=== PATIENT | male | born 1945 | race Caucasian/White ===

== ENCOUNTER 2019-12-02 11:25 | Outpatient (REF) | payer MEDICARE, SELFPAY ==
--- NOTE | 2019-12-02 | XR_ITS ---
EXAMINATION: XR HAND, LEFT CLINICAL INFORMATION: Pain left hand COMPARISON: None TECHNIQUE: PA, lateral, and oblique views of the left hand. FINDINGS: There is no fracture or dislocation. There are prominent osteoarthritic changes involving the first carpometacarpal joint with joint space narrowing and subchondral sclerosis and spurring. There is mild ossification in the adjacent lateral soft tissue. The ulnar variance is neutral. The MCP joints are normal. There is mild narrowing DIP joints without erosive changes. IMPRESSION: 1. Osteoarthritis first carpometacarpal joint. 2. Mild narrowing DIP joints. No erosive changes.
== END 2019-12-02 11:26 | disposition home or self-care (01) ==
LOC: HO.XRAY 11:25
PROVIDERS: PCP Internal Medicine; Visit Provider Internal Medicine
DX: M79.642 Pain in left hand (principal)
CPT/HCPCS: 73130

== ENCOUNTER 2020-04-25 10:26 | Outpatient (REF) | payer MEDICARE, SELFPAY ==
[2020-04-25 12:24] LABS: PSA,Total (Free>4and<10) 3.39 ng/mL (0.00-4.00)
== END 2020-04-25 10:27 | disposition home or self-care (01) ==
LOC: HO.HMGCLDS 10:26
PROVIDERS: PCP Internal Medicine; Visit Provider Urology
DX: N40.1 Benign prostatic hyperplasia with lower urinary tract symptoms (principal); N13.8 Other obstructive and reflux uropathy; Z12.5 Encounter for screening for malignant neoplasm of prostate
CPT/HCPCS: 36415; 84153

== ENCOUNTER 2020-06-14 08:17 | Outpatient (REF) | payer MEDICARE, SELFPAY ==
--- NOTE | ~2020-06-14 | US_ITS ---
EXAMINATION: US ABDOMEN COMPLETE CLINICAL INFORMATION: Right upper quadrant pain. COMPARISON: CT abdomen and pelvis 03/05/2017. Ultrasound abdomen 01/06/2012. Renal ultrasound 05/07/2011. TECHNIQUE: Real-time imaging of the abdominal viscera. FINDINGS: PANCREAS: Normal. ABDOMINAL AORTA: There is an abdominal aortic aneurysm measuring 2.5 x 2.7 cm in the distal segment. INFERIOR VENA CAVA: Visualized portions are normal. LIVER: The liver is normal in size. The liver contour is normal. The liver is diffusely increased in echogenicity. No focal hepatic lesion. There is no intrahepatic biliary duct dilatation seen. GALLBLADDER: Normal. The gallbladder is physiologically distended without evidence of stones, sludge, polyps, wall thickening or pericholecystic fluid. COMMON BILE DUCT: Normal in caliber measuring 0.6 cm in diameter. RIGHT KIDNEY: There are anechoic cysts in the upper pole measuring 4.2 x 4.0 x 4.5 cm, midpole measuring 1.5 x 1.4 x 1.6 cm and lower pole measuring 1.6 x 1.6 x 1.6 cm. No hydronephrosis or renal calculi. The kidney measures 11.3 cm in maximum dimension. LEFT KIDNEY: There is an anechoic cyst in the midpole measuring 2.1 x 1.8 x 2.3 cm. No hydronephrosis or renal calculi. The kidney measures 12.3 cm in maximum dimension. SPLEEN: Normal. The spleen measures 9.9 cm in maximum dimension. FREE FLUID: None. US/US abdomen complete IMPRESSION: There are at least 3 right renal and solitary left renal cysts. There is mild ectasia of distal abdominal aorta measuring 2.7 cm in maximum dimension. Rest of the abdominal ultrasound is unremarkable.
== END 2020-06-14 08:18 | disposition home or self-care (01) ==
LOC: HO.US 08:17
PROVIDERS: PCP Internal Medicine; Visit Provider Internal Medicine
DX: R10.11 Right upper quadrant pain (principal)
CPT/HCPCS: 76700

== ENCOUNTER 2020-06-18 08:48 | Outpatient (REF) | payer MEDICARE, SELFPAY ==
[2020-06-18 11:27] LABS: MANUAL DIFF FLAG NO
[2020-06-18 11:34] LABS: Glucose Urine UA NEG (NEG); Leukocyte Esterase Urine NEG (NEG); Nitrite Urine NEG (NEG); Specific Gravity - Urine 1.025 (1.005-1.025); Urine Blood NEG (NEG); Urine Ketones NEG (NEG); Urine Protein TRACE MG/DL (NEG-TRACE)
[2020-06-18 11:37] LABS: Appearance Urine CLEAR; Color Urine YELLOW
[2020-06-18 11:41] LABS: Basophils Percent Auto 0.5 % (0-2); Eosinophils Absolute Auto 0.5 X10*3/uL (0.0-0.4); Eosinophils Percent Auto 7.8 % (0-4); Hematocrit 48.6 % (42-52); Imm Gran Abs Auto 0.02 X10*3/uL (0.00-0.03); Imm Gran Pct Auto 0.3 % (0.0-0.4); Lymphocytes Absolute Auto 1.9 X10*3/uL (1.2-4.9); Lymphocytes Percent Auto 29.4 % (20-40); Mean Corpuscular HGB Conc 32.9 g/dl (31.0-36.0); Mean Corpuscular Hemoglobin 30.9 pg (27.0-33.0); Mean Corpuscular Volume 93.8 fL (80-98); Mean Platelet Volume 9.1 fL (9.4-12.4); Monocytes Absolute Auto 0.6 X10*3/uL (0.1-1.2); Monocytes Percent Auto 9.8 % (2-11); Neutrophils Absolute Auto 3.3 X10*3/uL (2.0-8.3); Neutrophils Percent Auto 52.2 % (45-73); Platelet Count 260 X10*3/uL (160-400); Red Blood Count 5.18 X10*6/uL (4.60-5.80); Red Cell Distribution Width 12.6 % (11.0-16.0); White Blood Count 6.4 X10*3/uL (4.8-10.8)
[2020-06-18 12:11] LABS: Alanine Aminotransferase 42 U/L (0-40); Albumin Level 4.5 g/dL (3.5-5.0); Alkaline Phosphatase 89 U/L (39-117); Anion Gap 14 (12-20); Aspartate Amino Transferase 37 U/L (5-37); Bilirubin Total 0.8 mg/dL (0.0-1.0); Blood Urea Nitrogen 22 mg/dL (9-16); Carbon Dioxide 28 mmol/L (22-29); Chloride 104 mmol/L (96-108); Cholesterol 132 mg/dL; Estimated Glomerular Filt Rate > 60; Glucose Fasting 93 mg/dL (60-99); HDL Cholesterol 35 mg/dL; LDL Cholesterol Calculated 68 mg/dl; Potassium 4.4 mmol/L (3.3-5.1); Sodium 142 mmol/L (135-145); Total Protein 8.3 g/dL (6.5-8.0); Triglycerides 147 mg/dL
== END 2020-06-18 08:49 | disposition home or self-care (01) ==
LOC: HO.HMGCLDS 08:48
PROVIDERS: PCP Internal Medicine; Visit Provider Internal Medicine
DX: I10 Essential (primary) hypertension (principal); E78.00 Pure hypercholesterolemia, unspecified; M10.9 Gout, unspecified; K21.9 Gastro-esophageal reflux disease without esophagitis; N40.0 Benign prostatic hyperplasia without lower urinary tract symptoms; Z12.5 Encounter for screening for malignant neoplasm of prostate
CPT/HCPCS: 36415; 80053; 80061; 81003; 84153; 85025

== ENCOUNTER → 2020-07-05 10:53 | Outpatient (REF) | payer MEDICARE, SELFPAY ==
--- NOTE | ~2020-07-05 | NM_ITS ---
EXAMINATION: NM HIDA SCAN WITH CCK INDICATION: Epigastric pain. TECHNIQUE: 5 mCi technetium mebrofenin and 1.8 mcg CCK. Imaging over the upper abdomen. FINDINGS: The liver uptake is normal. Ductal activity by 11 minutes. Gallbladder activity by 17 minutes. Bowel activity by 18 minutes. Subsequent injection of CCK demonstrates a gallbladder ejection fraction of 10%. NM/NM hepatobiliary w pharm IMPRESSION: Abnormally low gallbladder ejection fraction at 10%. Therefore, this may well be consistent with gallbladder dyskinesis.
== END ==
LOC: HO.NUCMED 10:53
PROVIDERS: Visit Provider Internal Medicine
DX: R10.13 Epigastric pain (principal)
CPT/HCPCS: 78227; A9537

== ENCOUNTER 2023-04-28 08:17 | Outpatient (AMB) | payer MEDICARE, SELFPAY ==
--- NOTE | 2023-04-28 08:58 | AM.OFFWIN_ITS ---
Intake Vital Signs 04/28/23 09:02 Height 5 ft 9 in Weight 180 lb BMI 26.6 BP 166/90 H Blood Pressure Location Rt brachial Position Sitting Pulse 78 Pulse Source Pulse Oximeter Temp 97.4 F Temp Source Oral Pulse Oximetry (%) 97 Oxygen Delivery Method Room Air Intake Visit Reasons: EP sore throat congestion [employer] Intake Note: pt is here for c/o sore throat, eyes burning, coughing since thursday Allergies No Known Allergies [No Known Allergies*] Allergy (Verified 04/28/23 09:02) Do you need a note to return to daycare/school/sports/work: No HPI HPI Comments History of Present Illness Details This is a 77-year-old male with a past medical history of hyperlipidemia, hypothyroidism, BPH and gout presenting for evaluation of a cough and rhinorrhea that he has had since Thursday. Patient states he about RSV however denies any recent sick contacts. He denies having any fevers, chil ls, ear pain, sore throat, chest pain or shortness of breath. Patient has not taken any medication for treatment of his symptoms. Patient has a colonoscopy scheduled for tomorrow morning and is concerned that he may have to cancel the procedure. Review of Systems Const All systems reviewed & are unremarkable except as noted in HPI and below Denies chills and Denies fever(s) Eyes Reports as per HPI ENT Denies post nasal drip, Denies sinus pressure and Reports other (Rhinorrhea) Card Reports no additional complaints and Denies dyspnea Resp Reports cough, Denies hemoptysis and Denies dyspnea Musc Reports no additional complaints Psych Reports no additional complaints Physical Exam Vital Signs: Last Vital Signs Temp 97.4 F 04/28/23 09:02 Pulse 78 04/28/23 09:02 BP 166/90 H 04/28/23 09:02 Pulse Ox 97 04/28/23 09:02 Oxygen Delivery Method Room Air 04/28/23 09:02 BMI result Body Mass Index 26.6 Const General: cooperative, healthy appearing, comfortable and no acute distress; No ill appearing Nutritional Appearance: average body habitus Orientation/consciousness: patient oriented x3 Limitations: no limitations HEENT Head: Yes normal to inspection Ears: external ears normal, TM's normal bilaterally and EAC's normal General nose exam: Normal external nose present Face and sinus: Yes normal facial exam and Yes sinuses nontender Mouth: Normal oral and palatal mucosa present and oropharynx normal Throat: Yes posterior oropharynx normal Eyes General: appearance normal, both eyes and all related structures Neck Lymphatic: no lymphadenopathy noted Resp Effort & Inspection: normal respiratory effort, no audible wheezes, no cough and no respiratory distress Auscultation: clear to auscultation bilaterally Cardio Rate: regular rate Rhythm: regular rhythm Neuro General: patient oriented x3 Psych Appearance: grossly normal Mental Status: mental status grossly normal Insight: Good insight present (Psych) Judgement: Good judgement present (Psych) Results AMB Rapid Strep AMB Rapid Strep Negative Last Edit by Daryn Devries CMA on 04/28/23 09 :19 Results Reviewed Results Reviewed: Rapid strep negative. Assessment & Plan Assessment & Plan (1) Upper respiratory infection: Comment: There is no evidence of a bacterial etiology to his presentation; COVID, influenza and SARs testing are pending at this time. Code(s): J06.9 - Acute upper respiratory infection, unspecified Qualifiers: URI type: unspecified viral URI Qualified Code(s): J06.9 - Acute upper respiratory infection, unspecified Plan: Tylenol as needed for discomfort, increase clear fluids daily, Mucinex OTC as needed. Orders: Orders AMB Rapid Strep Screen Today Z13.9 - Encounter for screening, unspecified SARS-CoV2/FLU/RSV Today J06.9 - Acute upper respiratory infection, unspecified Coding Level of Care Code Est Pt Level 3 (13923) Diagnoses Viral upper respiratory tract infection J06.9 URI type: unspecified viral URI Time Spent (min) 20
[2023-04-28 09:02] VITALS: BP 166/90; PULSE 78; TEMP 36.3; O2SAT 97; BMI 26.6
== END 2023-04-28 09:29 | disposition home or self-care (01) ==
PROVIDERS: PCP Internal Medicine; Visit Provider Physician Assistant
DX: J02.9 Acute pharyngitis, unspecified (principal); J06.9 Acute upper respiratory infection, unspecified
CPT/HCPCS: 87880; 99213

== ENCOUNTER 2023-04-28 11:04 | Outpatient (REF) | payer MEDICARE, SELFPAY ==
[2023-04-28 12:54] LABS: Influenza A PCR NEGATIVE (Negative); Influenza B PCR NEGATIVE (Negative); Resp Syncy Virus RNA Qual PCR NEGATIVE (Negative); SARS COV2 PCR INHOUSE NEGATIVE (Negative)
== END 2023-04-28 11:05 | disposition home or self-care (01) ==
LOC: HO.HMGCLNP 11:04
PROVIDERS: Visit Provider Nurse Practitioner Primary Care
DX: J06.9 Acute upper respiratory infection, unspecified (principal); Z11.52 Encounter for screening for COVID-19; Z20.828 Contact with and (suspected) exposure to other viral communicable diseases
CPT/HCPCS: 0241U